=== PATIENT | female | born 1960 | race Caucasian/White ===

== ENCOUNTER 2016-09-15 19:34 | Emergency (ER) | payer BC ==
[2016-09-15 19:58] VITALS: BP 121/81
--- NOTE | 2016-09-15 20:13 | UC ---
Ear Complaint HPI - HPI Summary HPI Summary: 3 DAYS OF SHARP LEFT EAR PAIN GETTING WORSE. HEARING IS MUTED. NO DRAINAGE. HAS HAD SOME MILD ST FOR THE PAST WEEK. NO FEVER, N/V/D. - History of Current Complaint Chief Complaint: UCEar Stated Complaint: EAR PAIN Time Seen by Provider: 09/15/16 20:03 Hx Obtained From: Patient Hx Last Menstrual Period: post menopausal Onset/Duration: Gradual Onset, Lasting Days, Still Present Severity Initially: Moderate Severity Currently: Moderate Pain Intensity: 8 Pain Scale Used: 0-10 Numeric Aggravating Factors: Nothing Alleviating Factors: Nothing Associated Signs/Symptoms: Positive: Hearing Loss. Negative: Discharge, Foreign Body Sensation, Trauma to Ear, Swelling @ - Allergies/Home Medications Allergies/Adverse Reactions: Allergies Allergy/AdvReac Type Severity Reaction Status Date / Time No Known Allergies Allergy Verified 09/15/16 19:58 Home Medications: Home Medications Azelastine/Fluticasone WIL(NF [Dymista(NF)] 1 spray 09/15/16 [History] Budesonide/Formote 160/4.5(NF) [Symbicort 160/4.5 (NF)] 1 puff 09/15/16 [History ] Fluticasone Propionate (Nasal) [Allergy Nasal [place] 24 Ho] 1 spray 09/15/16 [ History] Gabapentin TAB(NF) [Neurontin 600 mg TAB(NF)] 600 mg 09/15/16 [History] LevoCETirizine TAB (NF) [Xyzal TAB (NF)] 5 mg PO DAILY 09/15/16 [History Confirmed 09/15/16] Levothyroxine TAB* [Synthroid TAB*] 88 mcg PO 0800 09/15/16 [History Confirmed 09/15/16] PMH/Surg Hx/FS Hx/Imm Hx Endocrine History Of: Reports: Thyroid Disease, Hypothyroidism Denies: Diabetes Cardiovascular History Of: Denies: Cardiac Disorders, Hypertension Respiratory History Of: Reports: Asthma Denies: COPD GI/ History Of: Denies: Ulcer - Surgical History Surgical History: None - Family History Known Family History: Negative: Hypertension - Social History Alcohol Use: None Substance Use Type: None Smoking Status (MU): Never Smoked Tobacco Review of Systems Constitutional: Negative ENT: Sore Throat, Ear Ache Respiratory: Negative Cardiovascular: Negative Gastrointestinal: Negative All Other Systems Reviewed And Are Negative: Yes Physical Exam Triage Information Reviewed: Yes Appearance: Well-Appearing, No Pain Distress, Well-Nourished Vital Signs: Initial Vital Signs Temp 97.7 F 09/15/16 19:51 Pulse 67 09/15/16 19:51 Resp 16 09/15/16 19:51 BP 121/81 09/15/16 19:51 Pulse Ox 100 09/15/16 19:51 Vital Signs Reviewed: Yes Eyes: Positive: Conjunctiva Clear ENT: Positive: Hearing grossly normal, Pharynx normal, TMs normal, Other: - LEFT POSTERIOR AURICULAR LYMPH NODE SLIGHTLY ENLARGED.. Negative: TM bulging, TM dull, TM red Neck: Positive: Supple, Nontender Respiratory Exam: Normal Cardiovascular Exam: Normal Abdomen Description: Positive: Soft Musculoskeletal: Positive: No Edema Neurological: Positive: Alert Psychological: Positive: Age Appropriate Behavior Skin: Negative: rashes Ear Complaint Course/Dx - Differential Dx/Diagnosis Provider Diagnoses: LEFT EXTERNAL OTITIS Discharge - Discharge Plan Condition: Stable Disposition: HOME Patient Education Materials: Otitis Externa (ED) Referrals: Francis Pardo MD [Medical Doctor] - If Needed Additional Instructions: CORTISPORIN OTIC DISPENSED. OTC IBUPROFEN FOR DISCOMFORT. IF YOUR SYMPTOMS ARE NOT IMPROVING OVER THE NEXT SEVERAL DAYS FOLLOW-UP WITH ENT BELOW. ENT IN [place] [phone]
[2016-09-15] MEDS ORDERED: Neomyc/Polym/HC 1% OTIC SUSP* **OTIC LEFT EAR ONE (20:26)
== END 2016-09-15 21:08 | disposition home or self-care (01) ==
LOC: UCEAST 19:34 → MERGE 19:34 → UCEAST 21:08
DX: H60.92 Unspecified otitis externa, left ear (principal); E03.9 Hypothyroidism, unspecified
CPT/HCPCS: 99202; A9270-GY; G0463

== ENCOUNTER 2017-04-07 08:23 | Emergency (ER) | payer SELFPAY ==
[2017-04-07] MEDS ORDERED: Ketorolac INJ* 60 MG/2 ML VIAL IM ONE (08:37)
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
[2017-04-07 10:22] VITALS: BP 108/67
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
== END 2017-04-07 10:23 | disposition home or self-care (01) ==
LOC: ED 08:23
DX: M54.9 Dorsalgia, unspecified (principal); M54.2 Cervicalgia; V89.2XXA Person injured in unspecified motor-vehicle accident, traffic, initial encounter; Y93.9 Activity, unspecified; Y92.9 Unspecified place or not applicable
CPT/HCPCS: 70450; 72125; 72128; 72131; 96372; 99282; J1885